=== PATIENT | female | born 1950 | race Caucasian/White ===

== ENCOUNTER → 2022-04-27 13:18 | Outpatient (CLI) | payer MEDICARE, SELFPAY ==
--- NOTE | ~2022-04-27 | DEXA_ITS ---
Bone Density Report Name: MATTHEW BEARD Age: 72 Sex: Female Ethnicity: White Date of : 1950 Indication: postmenopausal; screening for osteoporosis; height loss; Referring Provider: ASHLIE SAPMSON Study: Bone densitometry was performed. Exam Date: April 27, 2022 Accession number: [id number] Bone Density: Region BMD T-score Z-score Classification AP Spine (L1-L4) 0.915 -1.2 1.2 Osteopenia Femoral Neck (Left) 0.698 -1.4 0.7 Osteopenia Total Hip (Left) 0.794 -1.2 0.5 Osteopenia Femoral Neck (Right) 0.638 -1.9 0.1 Osteopenia Total Hip (Right) 0.827 -0.9 0.8 Normal Total Hip Mean 0.811 -1.1 0.7 Osteopenia World Health Organization criteria for BMD impression classify patients as: Normal (T-score at or above -1.0), Osteopenia (T-score between -1.0 and -2.5), or Osteoporosis (T-score at or below -2.5). 10-year Fracture Risk(1): Major Osteoporotic Fracture 12% Hip Fracture 2.8% Reported Risk Factors: [place] (), Neck BMD=0.638, BMI=25.4 (1) FRAX(R) Version 3.08. Fracture probability calculated for an untreated patient. Fracture probability may be lower if the patient has received treatment. Clinical Information Provided by Patient: Has used the following medications: Vitamin D Patient maximum height was 67 Menopause Age: 49 Drinks caffeinated beverages Onset of menses at age 12 Number of children 3 Impression: The patient has low bone mass, based on the Right Femoral Neck T-score. The patient has an estimated ten-year risk of hip fracture of 2.8% and an estimated ten-year risk of major fracture of 12%, based on the WHO FRAX algorithm. Discussion: BONE DENSITY IS LOW AT ONE OR MORE SKELETAL SITES. This patient's lowest T-score is low at one or more skeletal sites. It meets the World Health Organization's (WHO) criteria for ?low bone mass? (T-score between -1.0 and -2.5). The patient's 10-year risk of fracture as calculated by FRAX is less than the threshold where pharmacological therapy is recommended by the National Osteoporosis Foundation (NOF). However, all treatment decisions require clinical judgment and consideration of individual patient factors, including patient preferences, comorbidities, previous drug use, risk factors not captured in the FRAX model (e.g., frailty, falls, vitamin D deficiency, increased bone turnover, interval significant decline in bone density) and possible under or overestimation of fracture risk by FRAX. The patient should follow a healthful lifestyle (good nutrition with adequate calcium and vitamin D, and appropriate weight-bearing exercise). Follow-Up: Consider repeating this study in 2 to 3 years to reassess this patient's status, or sooner if there is some new clinical indication. Reported by: SINDHU on 04/27/2022 1:43:00 PM.
== END ==
PROVIDERS: PCP Family Medicine; Visit Provider Family Medicine
DX: M85.88 Other specified disorders of bone density and structure, other site (principal); M85.852 Other specified disorders of bone density and structure, left thigh; M85.851 Other specified disorders of bone density and structure, right thigh
CPT/HCPCS: 77080

== ENCOUNTER 2022-07-17 08:16 | Outpatient (CLI) | payer MEDICARE, SELFPAY ==
[2022-07-17 19:52] LABS: Basophils Absolute Auto 0.1 K/mm3 (0.0-0.1); Eosinophils Absolute Auto 0.1 K/mm3 (0-0.3); Eosinophils Percent Auto 2.7 % (0-4.4); Hematocrit 40.1 % (37.0-47.0); Hemoglobin 13.4 g/dL (12.0-15.0); Immature Granulocyte Absolute 0.01 K/mm3 (0.00-0.031); Immature Granulocyte Percent A 0.2 % (0-0.5); Lymphocytes Absolute Auto 1.06 K/mm3 (0.9-3.2); Lymphocytes Percent Auto 20.8 % (18.3-44.2); Mean Corpuscular HGB Conc 33.4 g/dl (32-36); Mean Corpuscular Hemoglobin 31.2 pg (26-34); Mean Corpuscular Volume 93.5 fl (80-100); Mean Platelet Volume 9.1 fl (7.4-10.4); Monocytes Absolute Auto 0.5 K/mm3 (0.1-0.6); Monocytes Percent Auto 9.4 % (2.6-8.5); Neutrophils Absolute Auto 3.4 K/mm3 (1.3-6.7); Neutrophils Percent Auto 65.9 % (45.5-73.1); Platelet Count Result 279 k/mm3 (150-375); Red Blood Count 4.29 M/mm3 (4.2-5.4); Red Cell Distribution Width 12.5 % (11.5-14.5); White Blood Count 5.1 K/mm3 (4.5-10.0)
[2022-07-17 21:50] LABS: Hemoglobin A1C 5.3 % (<5.7)
[2022-07-17 22:34] LABS: Alanine Aminotransferase 35 U/L (6-35); Albumin Level 4.5 g/dL (3.5-5.1); Alkaline Phosphatase 99 U/L (38-126); Anion Gap 9 mmol/L (8-16); Aspartate Amino Transferase 43 U/L (14-36); Bilirubin,Total 0.7 mg/dL (0.2-1.3); Blood Urea Nitrogen 14 mg/dL (7-17); Calcium 9.1 mg/dL (8.4-10.2); Carbon Dioxide 23 mmol/L (22-30); Chloride 101 mmol/L (98-107); Cholesterol 143 mg/dL (0-200); Estimated Glomerular Filt Rate > 60; Glucose 97 mg/dL (65-110); HDL Direct 89 mg/dL; Potassium 4.6 mmol/L (3.4-5.0); Sodium 133 mmol/L (137-145); Triglycerides 60 mg/dL (<150)
[2022-07-17 22:45] LABS: LDL Cholesterol Direct 38 mg/dL
[2022-07-17 22:58] LABS: Free T4 Free Thyroxine 1.29 ng/mL (0.78-2.19)
[2022-07-17 23:02] LABS: Thyroid Stimulating Hormone 0.954 uIU/mL (0.465-4.680)
== END 2022-07-17 08:17 | disposition home or self-care (01) ==
LOC: ANHGOSHLAB 08:18
PROVIDERS: PCP Family Medicine; Visit Provider Family Medicine
DX: R73.9 Hyperglycemia, unspecified (principal); E55.9 Vitamin D deficiency, unspecified; E78.5 Hyperlipidemia, unspecified; R53.83 Other fatigue
CPT/HCPCS: 36415; 80053; 80061; 82306; 83036; 84439; 84443; 85025

== ENCOUNTER 2022-07-27 07:59 | Outpatient (CLI) | payer MEDICARE, SELFPAY ==
--- NOTE | ~2022-07-27 | MM_ITS ---
EXAMINATION: MM screening rubén BI w carlos HISTORY: Screening mammogram TECHNIQUE: Craniocaudal and mediolateral oblique 3-D tomosynthesis images were obtained and synthetic 2-D images were generated. CAD analysis was submitted and interpreted. COMPARISON: No prior mammogram is available for comparison at this institution. BREAST PARENCHYMAL COMPOSITION: The breasts are heterogeneously dense, which may obscure small masses . FINDINGS: No suspicious mass, calcification, or architectural distortion are identified in either sharad ast to suggest malignancy. IMPRESSION: 1. No mammographic evidence of malignancy. 2. Recommend routine screening mammography in one year. BI-RADS Category 1: Negative Reviewed, dictated and finalized at location A.
== END 2022-07-27 08:00 | disposition home or self-care (01) ==
PROVIDERS: PCP Family Medicine; Visit Provider Family Medicine
DX: Z12.31 Encounter for screening mammogram for malignant neoplasm of breast (principal)
CPT/HCPCS: 77063; 77067

== ENCOUNTER → 2023-02-03 08:05 | Outpatient (CLI) | payer MEDICARE, SELFPAY ==
--- NOTE | ~2023-02-03 | XR_ITS ---
Clinical Indication: Cough PA and lateral views of the chest: Comparison: None Findings: Focal hazy opacity right lung apex noted. Left lung clear. Probable COPD. Cardiomediastinal silhouette is within normal limits. Bones and soft tissues are unremarkable. Impression: COPD. Focal hazy opacity right lung apex, indeterminate. This could reflect chronic scarring, however focal pneumonitis or even pulmonary nodule cannot be completely excluded. CT advised to further evaluate. Reviewed, dictated and finalized at location M. Impression: COPD. Focal hazy opacity right lung apex, indeterminate. This could reflect chronic s carring, however focal pneumonitis or even pulmonary nodule cannot be completel y excluded. CT advised to further evaluate.
== END ==
PROVIDERS: PCP Family Medicine; Visit Provider Nurse Practitioner
DX: R05.9 Cough, unspecified (principal); R07.89 Other chest pain; J44.9 Chronic obstructive pulmonary disease, unspecified
CPT/HCPCS: 71046

== ENCOUNTER 2023-02-10 08:59 | Outpatient (CLI) | payer MEDICARE, SELFPAY ==
--- NOTE | ~2023-02-10 | CT_ITS ---
Clinical Indication: Acute cough CT Scan of the Chest with Contrast: Technique: Contiguous sections were acquired throughout the chest after intravenous administration of 75 cc of Omnipaque 350. Dose reduction technique was used on this scan by utilizing automated exposu re control and iterative reconstruction technique. The dose-length product (DLP) was 145.06 mGy-cm. Findings: There is no evidence of any significant mediastinal, hilar or axillary lymphadenopathy. There is no f illing defect in the pulmonary arterial tree to suggest pulmonary embolus. There is no evidence of ao rtic dissection or aneurysm. There is no evidence of pleural or pericardial effusion. There is linear bibasilar scarring. Calcified left lower lobe granuloma noted. There is an area of gr oundglass opacity and streakiness at the right lung apex, suggestive of postinflammatory change or po ssibly postradiation change if there is relevant history. Images through the upper abdomen reveal no abnormalities. Impression: Area of groundglass opacity right lung apex suggestive of postinflammatory change, or possibly postra diation change if there is relevant history. Acute pneumonitis is a potential consideration as well. Linear bibasilar pulmonary scarring. Reviewed, dictated and finalized at [facility]. Impression: Area of groundglass opacity right lung apex suggestive of postinflammatory monteiro ge, or possibly postradiation change if there is relevant history. Acute pneumo nitis is a potential consideration as well. Linear bibasilar pulmonary scarring.
[2023-02-10 09:21] LABS: Estimated Glomerular Filt Rate > 60
== END 2023-02-10 09:00 | disposition home or self-care (01) ==
PROVIDERS: PCP Family Medicine; Visit Provider Nurse Practitioner
DX: R05.1 Acute cough (principal); R91.8 Other nonspecific abnormal finding of lung field
CPT/HCPCS: 71260; Q9967

== ENCOUNTER 2023-06-24 10:21 | Emergency (ER) | payer MEDICARE, SELFPAY ==
--- NOTE | 2023-06-24 10:29 | ED.FEMALEGU ---
HPI - Female Genitourinary General Chief complaint: Abdominal Pain Stated complaint: Urinal pain Time Seen by Provider: 06/24/23 10:52 Source: patient, RN notes reviewed and old records reviewed Mode of arrival: ambulatory Limitations: no limitations History of Present Illness HPI Narrative: 73-year-old female presents to the [facility] complaints of lower abdominal discomfort. States that she has had it for a little while, got worse after eating last night. Reports trying to call her primary care provider this morning and was referred to the [facility] for evaluation. Patient reports that she was supposed to see GI in the past for IBS. Last bowel movement was this morning which she reports was normal in consistency but smaller than her normal Denies any urinary symptoms. Related Data Home Medications Medication Instructions Recorded Confirmed cholecalciferol (vitamin D3) 10 10 mcg PO DAILY 09/01/21 06/24/23 mcg (400 unit) capsule multivitamin 1 tablet PO DAILY 09/01/21 06/24/23 fexofenadine 60 mg tablet (Sherrill 60 mg PO Q12H 01/06/23 06/24/23 Allergy) Allergies Allergy/AdvReac Type Severity Reaction Status Date / Time prochlorperazine AdvReac tongue Verified 06/24/23 10:35 [From Compazine] came out of her mouth Review of Systems Review of Systems: All systems reviewed & are unremarkable except as noted in HPI and below Constitutional: Constitutional: Reports no additional constitutional complaints Eyes: Eyes: Reports no additional eye complaints ENT: Reports system reviewed and no additional complaints, except as documented Cardiovascular: Cardiovascular: Reports no additional cardiovascular complaints, Denies chest pain and Denies dyspnea Respiratory: Respiratory: Reports no additional respiratory complaints, Denies chest congestion, Denies cough and Denies dyspnea Gastrointestinal: Gastrointestinal: Reports as per HPI, Reports abdominal pain, Denies belching, Reports bloating, Denies constipation, Reports GI cramping, Denies diarrhea, Denies loose stools, Denies nausea, Denies vomiting and Denies hematemesis Musculoskeletal: Musculoskeletal: Reports no additional musculoskeletal complaints Integumentary/Breasts: Skin/Breast: Reports system reviewed and no additional complaints, except as docu Neurologic: Reports system reviewed and no additional complaints, except as documented Psychiatric: Psychiatric: Reports no additional psychiatric complaints Allergic/Immunologic: Allergic/Immunologic: Reports no additional allergic/immunologic complaints PMFSH Past Medical History Medical History Bladder prolapse Diverticulosis Hypertension IBS (irritable bowel syndrome) IBS (irritable bowel syndrome) Vaginal delivery x3 Surgical History Surgical History History of appendectomy History of cholecystectomy History of knee surgery right History of lumpectomy in breast for precancerous cells [place] teeth extracted Family History Family History Father Diabetes mellitus Hypertension Heart disease Mother Thyroid disorder Grandparent Cerebrovascular accident Sibling Diabetes mellitus Hypertension Social History Social History Smoking status: Former smoker Smoking end date: 10/04/99 Alcohol intake: current Substance use: never Lack of Transportation: No Lack of Food: Never True Current Housing: I Have Housing Concerned About Future Housing: No Difficulty Paying Gas/Electric Bills: No Difficulty Paying for Meds: No Currently Unemployed: No Education: High School Diploma/GED Difficulty w/ Childcare or Family Care: No Occupation/Education: retired Comments At the time of my signature, I reviewed and agree with the nursing pa
[2023-06-24 10:39] VITALS: BP 170/78; PULSE 70; RESP 16; TEMP 36.8; O2SAT 99
== END 2023-06-24 11:15 | disposition home or self-care (01) ==
PROVIDERS: Emergency Provider Nurse Practitioner; PCP Family Medicine
DX: K58.9 Irritable bowel syndrome, unspecified (principal); R14.0 Abdominal distension (gaseous); I10 Essential (primary) hypertension; Z87.891 Personal history of nicotine dependence
CPT/HCPCS: 81003; 99212; G0463

== ENCOUNTER 2023-07-13 08:21 | Outpatient (CLI) | payer MEDICARE, SELFPAY ==
[2023-07-13 18:47] LABS: Alanine Aminotransferase 23 U/L (6-35); Albumin Level 4.3 g/dL (3.5-5.1); Alkaline Phosphatase 97 U/L (38-126); Anion Gap 6 mmol/L (8-16); Aspartate Amino Transferase 45 U/L (14-36); Bilirubin,Total 0.8 mg/dL (0.2-1.3); Blood Urea Nitrogen 17 mg/dL (7-17); Calcium 9.4 mg/dL (8.4-10.2); Carbon Dioxide 29 mmol/L (22-30); Chloride 97 mmol/L (98-107); Cholesterol 218 mg/dL (0-200); Estimated Glomerular Filt Rate > 60; Glucose 82 mg/dL (65-110); HDL Direct 92 mg/dL; Potassium 4.9 mmol/L (3.4-5.0); Sodium 132 mmol/L (137-145); Triglycerides 94 mg/dL (<150)
[2023-07-13 19:05] LABS: LDL Cholesterol Direct 95 mg/dL
[2023-07-13 19:23] LABS: Vitamin D 25 Hydroxy 43.3 ng/mL
[2023-07-13 19:40] LABS: Basophils Percent Auto 0.8 % (0.2-1.2); Eosinophils Absolute Auto 0.1 K/mm3 (0-0.3); Eosinophils Percent Auto 2.9 % (0-4.4); Hemoglobin 13.8 g/dL (12.0-15.0); Immature Granulocyte Absolute 0.02 K/mm3 (0.00-0.031); Immature Granulocyte Percent A 0.4 % (0-0.5); Lymphocytes Absolute Auto 1.25 K/mm3 (0.9-3.2); Mean Corpuscular HGB Conc 33.7 g/dl (32-36); Mean Corpuscular Hemoglobin 32.1 pg (26-34); Mean Corpuscular Volume 95.3 fl (80-100); Mean Platelet Volume 9.6 fl (7.4-10.4); Monocytes Absolute Auto 0.5 K/mm3 (0.1-0.6); Monocytes Percent Auto 9.8 % (2.6-8.5); Neutrophils Absolute Auto 2.9 K/mm3 (1.3-6.7); Neutrophils Percent Auto 60.1 % (45.5-73.1); Platelet Count Result 284 k/mm3 (150-375); Red Cell Distribution Width 12.4 % (11.5-14.5); White Blood Count 4.8 K/mm3 (4.5-10.0)
== END 2023-07-13 08:22 | disposition home or self-care (01) ==
PROVIDERS: PCP Family Medicine; Visit Provider Family Medicine
DX: R53.83 Other fatigue (principal); E55.9 Vitamin D deficiency, unspecified; E78.5 Hyperlipidemia, unspecified
CPT/HCPCS: 36415; 80053; 80061; 82306; 84443; 85025

== ENCOUNTER 2023-07-13 08:24 | Outpatient (CLI) | payer MEDICARE, SELFPAY ==
[2023-07-13 19:41] LABS: Thyroid Stimulating Hormone Reflex 0.908 uIU/mL (0.465-4.68)
== END 2023-07-13 08:25 | disposition home or self-care (01) ==
PROVIDERS: PCP Family Medicine; Visit Provider Nurse Practitioner
DX: G89.29 Other chronic pain (principal); K59.09 Other constipation; R10.819 Abdominal tenderness, unspecified site; R10.9 Unspecified abdominal pain
CPT/HCPCS: 36415; 84443

== ENCOUNTER 2023-07-20 10:03 | Outpatient (CLI) | payer MEDICARE, SELFPAY ==
--- NOTE | ~2023-07-20 | CT_ITS ---
EXAMINATION: CT abdomen pelvis w con DATE: 07/20/2023 10:40 INDICATION: Lower abdominal pain, tenderness TECHNIQUE: Computed tomography (CT) of the abdomen and pelvis was performed with 100 CC Omnipaque 350 intravenous contrast. Automated exposure control and iterative reconstruction technique were employe d. Exam dose: 350.90 mGy-cm total exam DLP. COMPARISON: None. FINDINGS: There is mild discoid atelectasis and/or scarring at the lung bases. Cardiomegaly. No peric ardial or pleural effusion. Small sliding hiatal hernia. The liver, spleen and pancreas are unremarkable. The gallbladder is absent. No abnormal bile duct or pancreatic duct dilatation is detected. Normal morphology of the adrenal glands. Approximately 5 mm left renal cyst. Moderately prominent bilateral extrarenal pelves. No urinary trac t calculus or hydroureteronephrosis. The uterus is unremarkable. Pessary device is noted. Uterus and adnexal areas are unremarkable. There is atherosclerotic calcification at the origins of the celiac and superior mesenteric arteries. Normal caliber of the abdominal aorta. No intraperitoneal or retroperitoneal or pelvic mass lesion or adenopathy or ascites is detected. There are numerous diverticula of the sigmoid and descending and transverse colon; no evidence of div erticulitis. No bowel obstruction, bowel wall thickening, pneumatosis or intraperitoneal free air is detected. Likely chronic moderately prominent burst fracture deformity of L3. There are prominent degenerative changes apophyseal joints of the lumbar spine with associated grade 1 anterolisthesis at L5-S1. There is moderately severe degenerative disc disease at L5-S1. Osteopenia. IMPRESSION: Diverticulosis of the colon; no CT evidence of diverticulitis is detected Small sliding hiatal hernia 5 mm left renal cyst Likely chronic moderate burst fracture deformity of L3 Reviewed, dictated and finalized at [facility] A. Reviewed, dictated and finalized at location L. IMPRESSION: Diverticulosis of the colon; no CT evidence of diverticulitis is d etected Small sliding hiatal hernia 5 mm left renal cyst Likely chronic moderate burst fracture deformity of L3
== END 2023-07-20 10:04 | disposition home or self-care (01) ==
PROVIDERS: PCP Family Medicine; Visit Provider Nurse Practitioner
DX: R10.819 Abdominal tenderness, unspecified site (principal); K59.09 Other constipation; R10.9 Unspecified abdominal pain; G89.29 Other chronic pain; K44.9 Diaphragmatic hernia without obstruction or gangrene; N28.1 Cyst of kidney, acquired; K57.30 Diverticulosis of large intestine without perforation or abscess without bleeding
CPT/HCPCS: 74177; Q9967

== ENCOUNTER 2023-08-11 02:44 | Day surgery (SDC) | payer MEDICARE, SELFPAY ==
[2023-08-03 13:55] VITALS: BMI 23.1
--- NOTE | 2023-08-09 09:31 | SUR.PREOP ---
Patient called regarding upcoming procedure. Reviewed preop instructions, appointment times, and procedure prep.
[2023-08-11 06:45] VITALS: BP 159/56; PULSE 71; RESP 16; TEMP 36.5; O2SAT 100
[2023-08-11] MEDS: LACTATED RINGERS 1,000 ML 150 ML IV CONT (06:48)
--- NOTE | 2023-08-11 07:56 | PM.HPGS ---
History of Present Illness History of Present Illness Consent: Risks, benefits, and alternatives have been discussed and questions answered. Patient agrees to proceed with procedure. Chief complaint: Abdominal tenderness,Other constipation Narrative: Vanda Awad is a 73 year old female with ibs-c on metamucil and stool softener, recently with lower abdominal pain. CT scan showed diverticulosis, last colonoscopy 2014 Review of Systems Constitutional: Constitutional: Denies headache(s) and Denies weakness Eyes: Eyes: Denies blurry vision ENT: Reports Normal hearing present, Denies headache(s) and Denies neck pain Cardiovascular: Cardiovascular: Denies chest pain and Denies dyspnea Respiratory: Respiratory: Denies dyspnea Gastrointestinal: Gastrointestinal: Reports no additional gastrointestinal complaints Genitourinary: Genitourinary: Denies dysuria Musculoskeletal: Musculoskeletal: Denies neck pain Integumentary/Breasts: Skin/Breast: Denies dry skin Neurologic: Reports Normal hearing present, Denies headache(s) and Denies weakness Psychiatric: Psychiatric: Denies anxiety Endocrine: Endocrine: Denies change in body appearance Hematologic/Lymphatic: Hematologic/Lymphatic: Denies easy bleeding Allergic/Immunologic: Allergic/Immunologic: Denies urticaria PMFSH Past Medical History Medical History (Updated 07/07/23 @ 11:35 by Rosemarie Nowak DO) Bladder prolapse Chronic abdominal pain Chronic constipation Diverticulosis Hypertension IBS (irritable bowel syndrome) IBS (irritable bowel syndrome) Lower abdominal tenderness Vaginal delivery x3 Surgical History Surgical History History of appendectomy History of cholecystectomy History of knee surgery right History of lumpectomy in breast for precancerous cells [place] teeth extracted Family History Family History Father Diabetes mellitus Hypertension Heart disease Mother Thyroid disorder Grandparent Cerebrovascular accident Sibling Diabetes mellitus Hypertension Social History Social History Years smoked: 25 Smoking status: Former smoker Tobacco type: cigarettes Smoking end date: 10/04/99 Alcohol intake: current Drinks per week: 1 Substance use: never Lack of Transportation: No Lack of Food: Never True Current Housing: I Have Housing Concerned About Future Housing: No Difficulty Paying Gas/Electric Bills: No Difficulty Paying for Meds: No Currently Unemployed: No Education: High School Diploma/GED Difficulty w/ Childcare or Family Care: No Living arrangements: with family Occupation/Education: retired Spiritual care concerns: No Meds Home Medications and Allergies Home Medications Medication Instructions Recorded Confirmed Type cholecalciferol (vitamin D3) 10 10 mcg PO DAILY 09/01/21 08/11/23 History mcg (400 unit) capsule multivitamin 1 tablet PO DAILY 09/01/21 08/11/23 History fexofenadine 60 mg tablet (Sherrill 60 mg PO Q12H PRN Allergy Symptoms 01/06/23 08/11/23 History Allergy) losartan 50 mg tablet 50 mg PO DAILY #90 tabs 07/07/23 08/11/23 Rx calcium carbonate 600 mg-vitamin 1 tablet PO DAILY 08/03/23 08/11/23 History D3 10 mcg (400 unit) tablet (Calcium 600 + D(3)) Allergies Allergy/AdvReac Type Severity Reaction Status Date / Time prochlorperazine AdvReac tongue Verified 08/11/23 06:43 [From Compazine] came out of her mouth Vital Signs Vital Signs - 24 hr 08/11/23 06:45 Temperature 97.7 F Pulse Rate 71 Respiratory Rate 16 Blood Pressure 159/56 H Pulse Oximetry 100 Oxygen Delivery Room Air Exam Const: General: comfortable and no acute distress HENMT: Face/Nose/Sinus: Normal nares present Eyes: General: appearance normal, both eyes a
--- NOTE | 2023-08-11 08:01 | WPDANESEPPF ---
Anes - Initial Pre Proc Eval Procedure: Operation Date: 08/11/23 08:00 Proposed Procedures p Colonoscopy - Antoine Rossi MD Date/Time: 08/11/23 08:01 Surgeon: Antoine Rossi MD Pre Op Diagnosis: Abdominal tenderness,Other constipation Patient Data Age: 73 Gender: F Height: 1.69 m Weight: 65.7 kg Last Vital Signs Temp 97.7 F 08/11/23 06:45 Pulse 71 08/11/23 06:45 Resp 16 08/11/23 06:45 BP 159/56 H 08/11/23 06:45 Pulse Ox 100 08/11/23 06:45 O2 Del Method Room Air 08/11/23 06:45 Allergies Allergy/AdvReac Type Severity Reaction Status Date / Time prochlorperazine AdvReac tongue Verified 08/11/23 06:43 [From Compazine] came out of her mouth Home Medications Medication Instructions Recorded Confirmed Type cholecalciferol (vitamin D3) 10 10 mcg PO DAILY 09/01/21 08/11/23 History mcg (400 unit) capsule multivitamin 1 tablet PO DAILY 09/01/21 08/11/23 History fexofenadine 60 mg tablet (Sherrill 60 mg PO Q12H PRN Allergy Symptoms 01/06/23 08/11/23 History Allergy) losartan 50 mg tablet 50 mg PO DAILY #90 tabs 07/07/23 08/11/23 Rx calcium carbonate 600 mg-vitamin 1 tablet PO DAILY 08/03/23 08/11/23 History D3 10 mcg (400 unit) tablet (Calcium 600 + D(3)) Patient hx anesthesia problems: none Family hx anesthesia problems: none Results Review: All pre-operative results and documents have been reviewed as part of the pre-operative evaluation. [facility] Past Medical History Medical History (Updated 07/07/23 @ 11:35 by Rosemarie Nowak DO) Bladder prolapse Chronic abdominal pain Chronic constipation Diverticulosis Hypertension IBS (irritable bowel syndrome) IBS (irritable bowel syndrome) Lower abdominal tenderness Vaginal delivery x3 Surgical History Surgical History History of appendectomy History of cholecystectomy History of knee surgery right History of lumpectomy in breast for precancerous cells [place] teeth extracted Family History Family History Father Diabetes mellitus Hypertension Heart disease Mother Thyroid disorder Grandparent Cerebrovascular accident Sibling Diabetes mellitus Hypertension Social History Social History Years smoked: 25 Smoking status: Former smoker Tobacco type: cigarettes Smoking end date: 10/04/99 Alcohol intake: current Drinks per week: 1 Substance use: never Lack of Transportation: No Lack of Food: Never True Current Housing: I Have Housing Concerned About Future Housing: No Difficulty Paying Gas/Electric Bills: No Difficulty Paying for Meds: No Currently Unemployed: No Education: High School Diploma/GED Difficulty w/ Childcare or Family Care: No Living arrangements: with family Occupation/Education: retired Spiritual care concerns: No Anes - Eval Final PreProcedure Day of Procedure 08/11/23 08:01 Patient weight: normal Heart: regular rate and rhythm Lungs: clear to auscultation Airway: Mallampati scale class II Neurological: alert and oriented Last oral intake: >/= 8 hours ASA classification: II Emergent: no Anesthetic plan: proceed Anesthesia type and monitoring: general GIVS and standard monitoring Results Review: All pre-operative results and documents have been reviewed as part of the pre-operative evaluation. Informed Consent: The patient's anesthetic plan and its attendant risks and benefits were discussed with the patient/family/POA. Questions were solicited and answers provided to the satisfaction of the patient/family/POA.
[2023-08-11 08:23] VITALS: BP 95/53; PULSE 63; RESP 22; O2SAT 98
[2023-08-11 08:33] VITALS: BP 123/63; PULSE 63; RESP 15; O2SAT 99
[2023-08-11 08:40] VITALS: BP 130/60; PULSE 68; RESP 16; O2SAT 99
== END 2023-08-11 08:49 | disposition home or self-care (01) ==
PROVIDERS: PCP Family Medicine; Visit Provider Internal Medicine Gastroenterology
PROC: 0DJD8ZZ Inspection of Lower Intestinal Tract, Via Natural or Artificial Opening Endoscopic (ICD-10-PCS; CPT 45378; principal; 2023-08-11 08:00)
DX: K58.1 Irritable bowel syndrome with constipation (principal); D12.2 Benign neoplasm of ascending colon; K57.30 Diverticulosis of large intestine without perforation or abscess without bleeding; K64.8 Other hemorrhoids; I10 Essential (primary) hypertension; Z87.891 Personal history of nicotine dependence
CPT/HCPCS: 45385; 88305; J2704; J7120

== ENCOUNTER 2023-09-02 15:28 | Outpatient (CLI) | payer MEDICARE, SELFPAY ==
[2023-09-02 19:54] LABS: Alanine Aminotransferase 22 U/L (6-35); Albumin Level 4.2 g/dL (3.5-5.1); Alkaline Phosphatase 96 U/L (38-126); Anion Gap 9 mmol/L (8-16); Aspartate Amino Transferase 46 U/L (14-36); Bilirubin,Total 0.6 mg/dL (0.2-1.3); Blood Urea Nitrogen 14 mg/dL (7-17); Calcium 9.3 mg/dL (8.4-10.2); Carbon Dioxide 26 mmol/L (22-30); Chloride 101 mmol/L (98-107); Estimated Glomerular Filt Rate > 60; Glucose 100 mg/dL (65-110); Sodium 136 mmol/L (137-145)
[2023-09-02 20:26] LABS: Hepatitis B Surface Antigen Negative (Negative)
[2023-09-02 20:32] LABS: HAV RESULT Negative (Negative); Hepatitis B Core IgM Result Negative (Negative)
[2023-09-02 20:44] LABS: Hepatitis C Virus Antibody Negative (Negative)
== END 2023-09-02 15:29 | disposition home or self-care (01) ==
LOC: ANHGOSHLAB 15:30
PROVIDERS: PCP Family Medicine; Visit Provider Family Medicine
DX: G89.29 Other chronic pain (principal); R10.9 Unspecified abdominal pain; R74.8 Abnormal levels of other serum enzymes
CPT/HCPCS: 36415; 80053; 80074

== ENCOUNTER 2023-11-15 07:14 | Outpatient (CLI) | payer MEDICARE, SELFPAY ==
--- NOTE | ~2023-11-15 | MM_ITS ---
EXAMINATION: MM screening rubén BI w carlos HISTORY: Screening mammogram TECHNIQUE: Craniocaudal and mediolateral oblique 3-D tomosynthesis images were obtained and synthetic 2-D images were generated. CAD analysis was submitted and interpreted. COMPARISON: 07/27/2022 BREAST PARENCHYMAL COMPOSITION: The breasts are heterogeneously dense, which may obscure small masses . FINDINGS: No suspicious mass, calcification, or architectural distortion are identified in either sharad ast to suggest malignancy. There has been no suspicious interval change. IMPRESSION: 1. No mammographic evidence of malignancy. 2. Recommend routine screening mammography in one year. BI-RADS Category 1: Negative Reviewed, dictated and finalized at location A. 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
== END 2023-11-15 07:15 | disposition home or self-care (01) ==
LOC: ANHIMG 07:16
PROVIDERS: PCP Family Medicine; Visit Provider Family Medicine
DX: Z12.31 Encounter for screening mammogram for malignant neoplasm of breast (principal)
CPT/HCPCS: 77063; 77067

== ENCOUNTER 2024-04-12 15:06 | Outpatient (CLI) | payer MEDICARE, SELFPAY ==
[2024-04-12 19:36] LABS: Alanine Aminotransferase 22 U/L (6-35); Albumin Level 4.7 g/dL (3.5-5.1); Alkaline Phosphatase 86 U/L (38-126); Anion Gap 9 mmol/L (4-12); Aspartate Amino Transferase 48 U/L (14-36); Bilirubin,Total 0.8 mg/dL (0.2-1.3); Blood Urea Nitrogen 24 mg/dL (7-17); Calcium 9.4 mg/dL (8.4-10.2); Carbon Dioxide 29 mmol/L (22-30); Chloride 93 mmol/L (98-107); Estimated Glomerular Filt Rate > 60; Glucose 92 mg/dL (65-110); Potassium 4.3 mmol/L (3.4-5.0); Sodium 131 mmol/L (137-145)
[2024-04-13 16:33] LABS: Almond (F20) IgE <0.10 kU/L; Cashew Nut (F202) IgE <0.10 kU/L; Cashew Nut (F202) IgE Class 0; Codfish (F3) IgE <0.10 kU/L; Codfish (F3) IgE Class 0; Cow's Milk (F2) IgE <0.10 kU/L; Cow's Milk (F2) IgE Class 0; Egg White (F1) IgE <0.10 kU/L; Egg White (F1) IgE Class 0; Hazelnut (F17) IgE <0.10 kU/L; Hazelnut (F17) IgE Class 0; Peanut (F13) IgE <0.10 kU/L; Peanut (F13) IgE Class 0; Salmon (F41) IgE <0.10 kU/L; Salmon (F41) IgE Class 0; Scallop (F338) IgE <0.10 kU/L; Scallop (F338) IgE Class 0; Sesame Seed <0.10 kU/L; Shrimp (F24) IgE <0.10 kU/L; Soybean (F14) IgE <0.10 kU/L; Soybean (F14) IgE Class 0; Tuna (F40) <0.10 kU/L; Tuna (F40) Class 0; Walnut (F256) IgE <0.10 kU/L; Walnut (F256) IgE Class 0; Wheat (F4) IgE <0.10 kU/L; Wheat (F4) IgE Class 0
[2024-04-14 10:59] LABS: Endomysial Ab (IgA) Screen NEGATIVE (NEGATIVE)
[2024-04-15 04:19] LABS: Tissue Transglutaminase IgA Ab <1.0 U/mL
[2024-04-17 12:25] LABS: Endomysial Additional Testing Not Indicated
== END 2024-04-12 15:07 | disposition home or self-care (01) ==
PROVIDERS: PCP Family Medicine; Visit Provider Family Medicine
DX: R74.8 Abnormal levels of other serum enzymes (principal); K58.9 Irritable bowel syndrome, unspecified; R19.7 Diarrhea, unspecified; R10.9 Unspecified abdominal pain
CPT/HCPCS: 36415; 80053; 86003; 86255; 86364

== ENCOUNTER 2024-04-12 15:17 | Outpatient (CLI) | payer MEDICARE, SELFPAY ==
--- NOTE | ~2024-04-12 | XR_ITS ---
EXAMINATION: XR knee LT min 4V DATE: 04/12/2024 15:41 INDICATION: Left knee pain. TECHNIQUE: 4 views of left knee including standing views were obtained. COMPARISON: None. FINDINGS: Alignment is normal. No fracture. There is mild tricompartmental osteoarthritis. No knee neftaly int effusion. IMPRESSION: 1. Mild left knee osteoarthritis. Reviewed, dictated and finalized at location E.
== END 2024-04-12 15:18 ==
PROVIDERS: PCP Family Medicine; Visit Provider Family Medicine
DX: M17.12 Unilateral primary osteoarthritis, left knee (principal)
CPT/HCPCS: 73564

== ENCOUNTER 2024-07-17 08:10 | Outpatient (CLI) | payer MEDICARE, SELFPAY ==
[2024-07-17 14:36] LABS: Alanine Aminotransferase 20 U/L (6-35); Albumin Level 4.5 g/dL (3.5-5.1); Alkaline Phosphatase 89 U/L (38-126); Anion Gap 9 mmol/L (4-12); Aspartate Amino Transferase 54 U/L (14-36); Blood Urea Nitrogen 12 mg/dL (7-17); Calcium 9.4 mg/dL (8.4-10.2); Carbon Dioxide 27 mmol/L (22-30); Chloride 92 mmol/L (98-107); Cholesterol 238 mg/dL (0-200); Estimated Glomerular Filt Rate > 60; Glucose 90 mg/dL (65-110); HDL Direct 99 mg/dL; Potassium 4.8 mmol/L (3.4-5.0); Sodium 128 mmol/L (137-145); Triglycerides 87 mg/dL (<150)
[2024-07-17 14:47] LABS: LDL Cholesterol Direct 96 mg/dL
[2024-07-17 14:50] LABS: Basophils Absolute Auto 0.1 K/mm3 (0.0-0.1); Basophils Percent Auto 0.9 % (0.2-1.2); Eosinophils Absolute Auto 0.1 K/mm3 (0-0.3); Eosinophils Percent Auto 1.5 % (0-4.4); Hemoglobin 13.6 g/dL (12.0-15.0); Immature Granulocyte Absolute 0.02 K/mm3 (0.00-0.031); Immature Granulocyte Percent A 0.3 % (0-0.5); Lymphocytes Absolute Auto 0.93 K/mm3 (0.9-3.2); Lymphocytes Percent Auto 15.9 % (18.3-44.2); Mean Corpuscular Hemoglobin 31.8 pg (26-34); Mean Corpuscular Volume 93.5 fl (80-100); Mean Platelet Volume 9.4 fl (7.4-10.4); Monocytes Absolute Auto 0.4 K/mm3 (0.1-0.6); Monocytes Percent Auto 7.2 % (2.6-8.5); Neutrophils Absolute Auto 4.3 K/mm3 (1.3-6.7); Neutrophils Percent Auto 74.2 % (45.5-73.1); Platelet Count Result 282 k/mm3 (150-375); Red Blood Count 4.28 M/mm3 (4.2-5.4); Red Cell Distribution Width 12.4 % (11.5-14.5); White Blood Count 5.9 K/mm3 (4.5-10.0)
[2024-07-17 15:15] LABS: Vitamin D 25 Hydroxy 52.3 ng/mL
== END 2024-07-17 08:11 | disposition home or self-care (01) ==
PROVIDERS: PCP Family Medicine; Visit Provider Nurse Practitioner
DX: E55.9 Vitamin D deficiency, unspecified (principal); I10 Essential (primary) hypertension; M85.80 Other specified disorders of bone density and structure, unspecified site; E78.5 Hyperlipidemia, unspecified
CPT/HCPCS: 36415; 80053; 80061; 82306; 85025

== ENCOUNTER 2024-08-01 08:34 | Outpatient (CLI) | payer MEDICARE, SELFPAY ==
--- NOTE | ~2024-08-01 | US_ITS ---
EXAMINATION: US right upper quadrant DATE: 08/01/2024 09:15 INDICATION: Abnormal levels of other serum enzymes. TECHNIQUE: Multiple grayscale and Doppler ultrasound images of the abdomen were obtained. COMPARISON: CT abdomen and pelvis 07/20/2023 FINDINGS: The visualized portions of the head and body of the pancreas are normal. The liver is srikanth l without focal lesion. There is normal flow in main portal vein. The gallbladder is absent. The comm on duct is normal and measures 4 mm. There is antegrade flow in main portal vein. IMPRESSION: 1. No etiology for abnormal liver function tests. Reviewed, dictated and finalized at location B.
== END 2024-08-01 08:35 | disposition home or self-care (01) ==
PROVIDERS: PCP Family Medicine; Visit Provider Nurse Practitioner
DX: R74.8 Abnormal levels of other serum enzymes (principal)
CPT/HCPCS: 76705

== ENCOUNTER 2024-08-03 08:27 | Outpatient (CLI) | payer MEDICARE, SELFPAY ==
[2024-08-03 18:52] LABS: Alanine Aminotransferase 20 U/L (6-35); Albumin Level 4.3 g/dL (3.5-5.1); Alkaline Phosphatase 101 U/L (38-126); Anion Gap 10 mmol/L (4-12); Aspartate Amino Transferase 38 U/L (14-36); Bilirubin,Total 0.5 mg/dL (0.2-1.3); Blood Urea Nitrogen 20 mg/dL (7-17); Calcium 9.3 mg/dL (8.4-10.2); Carbon Dioxide 27 mmol/L (22-30); Chloride 98 mmol/L (98-107); Estimated Glomerular Filt Rate > 60; Glucose 90 mg/dL (65-110); Potassium 4.6 mmol/L (3.4-5.0); Sodium 135 mmol/L (137-145)
[2024-08-03 19:09] LABS: Iron 93 ug/dL (37-170)
[2024-08-03 19:16] LABS: Thyroid Stimulating Hormone 0.982 uIU/mL (0.465-4.680)
[2024-08-03 19:18] LABS: Percent Iron Saturation 31 % (20-50)
[2024-08-03 19:39] LABS: HIV 1/2 Ab P24 Ag Result Negative (Negative)
[2024-08-03 19:50] LABS: Hepatitis B Surface Antigen Negative (Negative)
[2024-08-03 20:07] LABS: Hepatitis C Virus Antibody Negative (Negative)
[2024-08-07 14:53] LABS: Immunoglobulin A 252 mg/dL (70-320); TTG IGA AB <1.0 U/mL
== END 2024-08-03 08:28 | disposition home or self-care (01) ==
PROVIDERS: PCP Family Medicine; Visit Provider Nurse Practitioner
DX: E78.5 Hyperlipidemia, unspecified (principal); R74.8 Abnormal levels of other serum enzymes
CPT/HCPCS: 36415; 80053; 82784; 83540; 83550; 84443; 86364; 86703; 86803; 87340; G0432

== ENCOUNTER 2024-12-28 07:55 | Outpatient (CLI) | payer MEDICARE, SELFPAY ==
--- OUTSIDE RECORDS SUMMARY | 2024-12-28 08:01 | XMS_ITS | Referral Summary ---
[facility] Organization [facility] Address [address] [place] [address] Care Team Providers Care [employer]ke Coupler Name Role Phone Rosemarie Nowak Primary Care Provider + Allergies Active Allergy Reactions Criticality Noted Date Comments Prochlorperazine Other (See comments) Low 8 COULD NOT KEEP TONGUE IN MOUTH...SPASTIC TONGUE Tongue spasms Medications losartan-hydroC HLOROthiazide (HYZAAR) 50-12.5 mg per tablet 1 TABLET ORALLY DAILY NEEDS APPOINTMENT FOR FURTHER REFILLS 4 Active multivitamin/ir on/folic acid (CENTRUM WOMEN ORAL) Take by mouth Active calcium citrate 250 mg calcium tablet tablet Take by mouth Ac tive Active Problems No known active problems Social History Tobacco Use Types Packs/Day Years Used Date Smoking Tobacco: Former Cigarettes Tobacco Cessation:Counseling Given: Not Answered Personal Safety Answer Date Recorded Getting School Help Needed Not on file 12/17 Comments Unknown Sex and Gender Information Value Date Recorded Sex Assigned at Not on file Legal Sex Female 1:37 PM 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 us Historical Provider GI PROCEDURE ORDERABLES F inal Result from Last 3 Months or Most Recently Relevant to Health Maintenance Insurance [employer] MEDICARE Care Teams [employer] Relationship Specialty Start Date End Date Rosemarie Nowak DO [facility] [place] [address] PCP - General Family Medicine 02/29/24
--- OUTSIDE RECORDS SUMMARY | 2024-12-28 08:01 | XMS_ITS | Clinical Summary ---
Author Organization [facility] Address [address] [place] [address] Care Team Providers Care Centerless Grinder Name Role Phone Eva Orlando PA-C Primary Care Provider [phone] Allergies Active Allergy Reactions Criticality Noted Date Comments Prochlorperazine Other (see comment) 02/25/2018 Tongue spasms Medications VENTOLIN HFA 108 (90 Base) MCG/ACT inhaler Take 2 Inhalers by mouth as needed. 1 8 Active doxycycline monohydrate 100 MG tablet Take 1 tablet by mouth 2 (two) times a day. 8 Active hydrochlorothiaz griffin 12.5 MG capsule Take 12.5 mg by mouth daily. 0 8 Active Social History Tobacco Use Types Packs/Day Years Used Date Smoking Tobacco: Former Smokeless Tobacco: Never Comments:QUIT 20 YRS. 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 Gender Identity Not on file Sexual Orientation Not on file Last Filed Vital Signs Vital Sign Reading Time Taken Comments Blood Pressure 136/70 07/05/2018 10:34 AM CDT Pulse 74 07/05/2018 10:34 AM CDT Temperature 37.6 C (99.7 F) 03/10/2018 9:40 AM CDT Respiratory Rate 14 03/10/2018 10:40 AM CDT Oxygen Saturation 97% 03/10/2018 10:40 AM CDT Inhaled Oxygen Concentration - - Weight 65.8 kg (145 lb) 07/05/2018 10:34 AM CDT Height 165.1 cm (5' 5 ) 07/05/2018 10:34 AM CDT Body Mass Index 24.13 07/05/2018 10:34 AM CDT Plan of Treatment Health Maintenance Due Date Last Done Comments Hepatitis C 01[birth year]10/1968 DTaP, Tdap and Td Vaccines (1 - Tdap) 09/04/2011 09/03/2011, 1950 Annual Medicare Wellness Visit 01/10/2013 Zoster Vaccines (2 of 3) 11/29/2013 10/04/2013 RSV Immunization or 60+ Years (1 - 1-dose 75+ series) 01/10/2023 COVID-19 Vaccine (3 - season) 2024 12/10/2020, 10/29/2020 Influenza Adult (#1) 2024 07/17/2021, 06/09/2017, 07/04/2013, Additional history exists Pneumococcal Vaccine: 65+ Years Completed 05/26/2016, 10/04/2013, 03/04/2013 Dexa Scan (General) Completed 07/04/2018 Meningococcal B Vaccine Aged Out No l onger eligible based on patient's age to complete this topic Meningococcal Vaccine Aged Out No noé jimmy eligible based on patient's age to complete this topic RSV Immunizations Under 20 Months Aged Out No longer eligible based on patient's age to complete this topic Procedures Procedure Name Priority Date/Time Associated Diagnosis Comments BONE DENSITY/DEXA Routine 07/04/2018 1:5 5 PM CDT Menopause Postmenopausal status from Last 3 Months or Most Recently Relevant to Health Maintenance Results * BONE DENSITY/DEXA (07/04/2018 1:55 PM CDT) Anatomical Region Laterality Modality Bone Bone Density 07/04/2018 4:25 PM CDT Impressions 07/04/2018 4:28 PM CDT Impression: BMD measured at AP lumbar spine, both femoral necks and left total hip at WHO category level of osteopenia. BMD measured at right total hip at level of normal. Interpreted By: Claus Dawson MD, 07/04/2018 4:25 PM Narrative 07/04/2018 4:28 PM CDT 07/04/2018 Examination: DEXA Bone densitometry Clinical history: Smoking history. Exercise. History of steroid medication use. Postmenopausal. Technique: DEXA bone mineral density evaluation was performed in the AP projection over the lumbar spine and over both hips in the AP projection utilizing standard imaging techniques. Assessment: The BMD measured at the AP spine L1-L4 is 1.008 g/cm2 with a T-score of -1.4 and a Z-Score of 0.2. The patient is considered osteopenic according to World Health Organization (WHO) criteria. Bone density is between 10 and 25% below young normal. Fracture risk is moderate. Treatment is advised. The BMD measured at the femur total left is 0.825 g/cm2 with a T-score of -1.4 and a Z-Score of 0.0. The patient is considered osteopenic according to World Health Organization (WHO) criteria. Bone density is between 10 and 25% below young normal. Fracture risk is moderate. Treatment is advised. The BMD measured at left femoral neck is 0.831 g/sq cm resulting in a T score of -1.5 and a Z score of 0.2, values at the WHO category level of osteopenia. The BMD measured at the femur total right is 0.881 g/cm2 with a T-score of -1.0 and aZ-Score of 0.5. Bone density is up to 10% below young normal. This patient is considered normal according to the World Health Organization (WHO) criteria. Fracture risk is low. The BMD measured at the right femoral neck is 0.825 g/sq cm resulting in a T score of -1.5 and a Z score of 0.2, values at the WHO category level of osteopenia. FRAX results: 10 year probability of major osteoporotic fracture 9.8% and of hip fracture 1.5%. Recommendations: All patients should ensure an adequate intake of dietary calcium and vitamin D. The NOF recommend adults under the age of 50 need 1000 mg of calcium and 400-800 IU of vitamin D daily. Effective therapy for the prevention and treatment of osteoporosis include biphosphonates. Follow-up: People with diagnosed cases of osteoporosis or at high risk for fracture should have regular bone mineral density test. For patients eligible for Medicare, routine testing is allowed once every 2 years. Testing frequency can be increased to one year for patients who have rapidly progressing disease, those who are receiving or discontinuing medical therapy to restore bone mass, or have additional risk factors. Based on these results, a followup exam is recommended in no earlier than 2 years for routine follow-up. As early as 1 year for assessment of efficacy of new medication therapy for treatment of osteoporosis. Procedure Note Claus Dawson MD - 07/04/2018 07/04/2018 Examination: DEXA Bone densitometry Clinical history: Smoking history. Exercise. History of steroidmedication use. Postmenopausal. Technique: DEXA bone mineral density evaluation was performed in the AP projection over the lumbar spine and over both hips in the AP projection utilizing standard imaging techniques. Assessment: The BMD measured at the AP spine L1-L4 is 1.008 g/cm2 with a T-score of -1.4 and a Z-Score of 0.2. The patient is considered osteopenic according to World Health Organization (WHO) criteria. Bone density is between 10 and 25% below young normal. Fracture risk is moderate.Treatment is advised. The BMD measured at the femur total left is 0.825 g/cm2 with a T-scoreof -1.4 and a Z-Score of 0.0. The patient is considered osteopenic according to World Health Organization (WHO) criteria. Bone density is between 10 and 25% below young normal. Fracture risk is moderate.Treatment is advised. The BMD measured at left femoral neck is 0.831 g/sq cm resulting in a T score of -1.5 and a Z score of 0.2, values at the WHO category level of osteopenia. The BMD measured at the femur total right is 0.881 g/cm2 with a T-scoreof -1.0 and aZ-Score of 0.5. Bone density is up to 10% below youngnormal. This patient is considered normal according to the World Health Organization (WHO) criteria. Fracture risk is low. The BMD measured at the right femoral neck is 0.825 g/sq cm resulting bree T score of -1.5 and a Z score of 0.2, values at the WHO category levelof osteopenia. FRAX results: 10 year probability of major osteoporotic fracture 9.8%and of hip fracture 1.5%. Recommendations: All patients should ensure an adequate intake of dietary calcium and vitamin D. The NOF recommend adults under the age of 50 need 1000 mg of calcium and 400-800 IU of vitamin D daily. Effective therapy for the prevention and treatment of osteoporosis include biphosphonates. Follow-up: People with diagnosed cases of osteoporosis or at high risk for fracture should have regular bone mineral density test. For patients eligible for Medicare, routine testing is allowed once every 2 years. Testingfrequency can be increased to one year for patients who have rapidly progressing disease, those who are receiving or discontinuing medical therapy to restore bone mass, or have additional risk factors. Based on these results, a followup exam is recommended in no earlier than2 years for routine follow-up. As early as 1 year for assessment ofefficacy of new medication therapy for treatment of osteoporosis. Impression: BMD measured at AP lumbar spine, both femoral necks and left total hipat WHO category level of osteopenia. BMD measured at right total hip at level of normal. Interpreted By: Claus Dawson MD, 07/04/2018 4:25 PM Paige Luther MD DEXA Final Result from Last 3 Months or Most Recently Relevant to Health Maintenance Insurance AET Advance Directives Documents on File Type Date Recorded Patient Seasoner Expl anation Advance Directives and Livin g Will 03/14/2018 9:36 AM LIVING WILL Advance Directives and Livin g Will 12/16/2017 LIVING WILL Advance Directives and Livin g Will 12/07/2017 LIVING WILL Advance Directives and Livin g Will 11/29/2017 LIVING WILL Advance Directives and Livin g Will 11/25/2017 LIVING WILL Advance Directives and Livin g Will 07/22/2017 LIVING WILL Care Teams Centerless Grinder Relationship Specialty Start Date End Date Eva Orlando PA-C [address] [place] [address] PCP - General PHYSICIAN PROJECT CONTROL ANALYST 09/16/20
--- OUTSIDE RECORDS SUMMARY | 2024-12-28 08:01 | XMS_ITS | Encounter Summary ---
Author Organization [facility] Address [address] [place] [address] Care Team Providers Care Dashboard Developer Name Role Phone Lynn Chester NP Primary Care Provider [phone] Paige Luther MD Primary Care [facility] Orlando PA-C Primary Care Provider [phone] Encounter Details Date Type Department Care Team (Late st Contact Info) Description 12/18/2017 Abstract [facility] CONVERSION [address] [place] [address] , Generic MD Goldy Social History Tobacco Use Types Packs/Day Years Used Date Smoking Tobacco: Never Assessed Comments Unknown Sex and Gender Information Value Date Recorded Sex Assigned at Not on file 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
--- OUTSIDE RECORDS SUMMARY | 2024-12-28 08:01 | XMS_ITS | Clinical Summary ---
Author Organization [facility] Address [address], [facility] [address] [place] [address] Phone Care Team Providers Care Supervisor Powdered Metal Name Role Phone Unavailable Primary Care Provider Unavailabl e Allergies Active Allergy Reactions Criticality Noted Date Comments Prochlorperazine Maleate Other (see Comments) COULD NOT KEEP TONGUE IN MOUTH...SPASTIC TONGUE Medications Cholecalciferol (Vitamin D3) 1000 UNIT TabletIndication s:Vitamin D deficiency Take by mouth. Active Multiple Vitamin (MULTI-VITAMIN PO) Take by mouth. Active MAGNESIUM PO Take 250 mg by mouth. Active Probiotic Product (PROBIOTIC PO) 10/05/2021 Acti ve LOSARTAN POTASSIUM PO Take 12.5 mg by mouth daily. Active atorvastatin (LIPITOR) 20 MG Tablet Take 20 mg by mouth nightly. Active Active Problems Problem Noted Date Diagnosed Date Elevated HDL 07/17/2021 Hyperlipidemia 07/17/2021 Right knee pain 07/17/2021 Cystocele with prolapse 07/17/2021 History of breast cancer 05/19/2021 Radiation pneumonitis 05/19/2021 Allergic rhinitis 05/19/2021 Diverticulosis 05/19/2021 Vitamin D deficiency 05/19/2021 Insomnia 05/19/2021 IBS (irritable bowel syndrome) Overview (08/15/2015): CONSTIPATION HTN (hypertension) Osteopenia Resolved Problems Problem Noted Date Diagnosed Date Resolved Date Encounter for immunization 07/17/2021 1 Diverticulitis 05/19/2021 Immunizations Immunization Administration Dates Next Due Covid-19, Mrna, Lnp-s, PF, 1 00 mcg/0.5 mL Dose (Moderna) 12/10/2020,10/29/2020 Influenza Vaccine greater than 3 yrs 07/04/2013 Influenza Vaccine, Quadrivalent, PF 07/17/2021 PUR PCV-13 05/26/2016 Pneumococcal Vaccine Adult - 23 Valent 3 TD VACCINE 09/03/2011 Family History Medical History Relation Name Comments Hypertension Brother 1 Hypertension Brother 2 Diabetes Father Heart Disease Father Hypertension Father Hypertension Maternal Grandfather Dementia Mother Thyroid Disease Mother Relation Name Status Comments Brother 1 Brother 2 Father Maternal Grandfather Mother Social History Tobacco Use Types Packs/Day Years Used Date Smoking Tobacco: Former Cigarettes Q uit: 1999 Smokeless Tobacco: Never Tobacco Cessation:Counseling Given: Not Answered Alcohol Use Standard Drinks/Week Comments Yes 0 (1 standard drink = 0.6 oz pur e alcohol) occassionally PHQ-2 Answer Date Recorded Total Score - Questions 1-9 0 05/04 Education Answer Date Recorded What is the highest level of school you have completed or the highest degree you have received? Some college, no degree 10/07/2021 Comments No Sex and Gender Information Value Date Recorded Sex Assigned at Not on file Legal Sex Female 11:21 PM CDT Gender Identity Not on file Sexual Orientation Not on file Last Filed Vital Signs Vital Sign Reading Time Taken Comments Blood Pressure 165/76 10/26/2022 8:32 AM AUTOMATIC PAINT SPRAYER OPERATOR Pulse 61 10/26/2022 8:32 AM AUTOMATIC PAINT SPRAYER OPERATOR Temperature 36.7 C (98.1 F) 10/26/2022 8:32 AM AUTOMATIC PAINT SPRAYER OPERATOR Respiratory Rate 12 10/26/2022 8:32 AM AUTOMATIC PAINT SPRAYER OPERATOR Oxygen Saturation 100% 10/26/2022 8:32 AM AUTOMATIC PAINT SPRAYER OPERATOR Inhaled Oxygen Concentration - - Weight 68 kg (150 lb) 10/16/2022 3:00 PM AUTOMATIC PAINT SPRAYER OPERATOR Height 168.9 cm (5' 6.5 ) 10/16/2022 3:00 PM AUTOMATIC PAINT SPRAYER OPERATOR Body Mass Index 23.85 10/16/2022 3:00 PM AUTOMATIC PAINT SPRAYER OPERATOR Plan of Treatment Health Maintenance Due Date Last Done Comments Hepatitis C Virus (HCV) Screening 1950 TdaP Immunization 1950 Respiratory Syncytial Virus (RSV) Immunization (Adult) (1 - 1-dose 75+ series) 01/10/2023 Influenza Immunization (#1) 06/04/202406/05, 07/17/2021, 07/04/2013 SARS-COV-2 Immunization ( season) 2024 09/10/2022, 08/09/2021, 12/10/2020, Additional history exists DTaP/Tdap/Td Immunization Discontinued 09/03/2011 Pneumococcal Immunization (50+ years) Completed 05/26/2016, 03/04/2013 Pneumococcal Immunization Combined Discontinued 05/26/2016, 03/04/2013 Mammogram Discontinued 07/15/2021, 09/03, 07/25/2019, Additional history exists Zoster Immunization Completed 07/30/2022, Hepatitis B Immunization Aged Out No longer eligible based on patient's age to complete this topic Meningococcal Immunization (ACWY) Aged Out No longer eligible based on patient's age to complete this topic Rotavirus Immunization Aged Out No lo nger eligible based on patient's age to complete this topic Medical Devices Implanted Type Area Special Education Tutor Device Identifier Shelf Expiration Date Model / Serial / Lot [employer] Simplicity Iol Delivery System Implanted:Qty: 1 on 10/26/2022 by Raman Kraus MD at [facility] Right: Eye 07/29/2025 [id number] / [id number] / [id number] Procedures Procedure Name Priority Date/Time Associated Diagnosis Comments [facility] SCREENING BILATERAL DIGITAL W CAD W ANGELO Routine 07/15/2021 7:21 AM CDT Encounter for screening mammogram for breast cancer from Last 3 Months or Most Recently Relevant to Health Maintenance Results * [facility] SCREENING BILATERAL DIGITAL W CAD W ANGELO (07/15/2021 7:21 AM CDT) Anatomical Region Laterality Modality breast Bilateral Mammography 07/15/2021 9:29 AM CDT Narrative 07/21/2021 3:52 PM CDT - [facility] SCREENING BILATERAL DIGITAL W CAD W ANGELO BILATERAL DIGITAL SCREENING MAMMOGRAM 3D/2D WITH CAD WITH MEDIOLATERAL OBLIQUE CRANIOCAUDAL: 07/15/2021 The study was acquired using digital technology and interpreted from soft copy. Current study was also evaluated with ICAD version 7.2. 2D digital mammographic views, as well as 3D digital tomosynthesis were performed in the CC and MLO projections. CLINICAL: Routine screening. Patient has no complaints. Patient states history of right breast lumpectomy and radiation therapy for pre-cancerous cells. Maternal aunt with breast cancer. COMPARISONS: Comparison is made to exams dated: 07/04/2018, 09/19/2020, 07/25/2019, and 04/19/2019 [facility]. BREAST TISSUE:The tissue of both breasts is heterogeneously dense. This may lower the sensitivity of mammography. FINDINGS: There are benign vascular calcifications in both breasts. No significant masses, calcifications, or other findings are seen in either breast. There has been no significant interval change. IMPRESSION: BI-RAD 2 BENIGN There is no mammographic evidence of malignancy. A 1 year screening mammogram is recommended. The patient has been or will be contacted. The patient will be entered into a reminder system with a target due date of 1 year for her next screening exam. Electronically signed by: Jeremias rincon/rahel:07/21/2021 15:35:31 Drafting Engineer(s): RT Wellington(R)(M), [facility] letter sent: Normal Exam Reading location: [facility] BI-RADS: 2 Benign Procedure Note Jeremias Smith MD - 07/21/2021 - [facility] SCREENING BILATERAL DIGITAL W CAD W ANGELO BILATERAL DIGITAL SCREENING MAMMOGRAM 3D/2D WITH CAD WITH MEDIOLATERAL OBLIQUE CRANIOCAUDAL: 07/15/2021 The study was acquired using digital technology and interpreted from soft copy. Current study was also evaluated with ICAD version 7.2. 2D digital mammographic views, as well as 3D digital tomosynthesis were performed in the CC and MLO projections. CLINICAL: Routine screening. Patient has no complaints. Patient states history of right breast lumpectomy and radiation therapy for pre-cancerous cells. Maternal aunt with breast cancer. COMPARISONS: Comparison is made to exams dated: 07/04/2018, 09/19/2020, 07/25/2019, and 04/19/2019 [facility]. BREAST TISSUE:The tissue of both breasts is heterogeneously dense. This may lower the sensitivity of mammography. FINDINGS: There are benign vascular calcifications in both breasts. No significant masses, calcifications, or other findings are seen in either breast. There has been no significant interval change. IMPRESSION: BI-RAD 2 BENIGN There is no mammographic evidence of malignancy. A 1 year screening mammogram is recommended. The patient has been or will be contacted. The patient will be entered into a reminder system with a target due date of 1 year for her next screening exam. Electronically signed by: Jeremias rincon/rahel:07/21/2021 15:35:31 Drafting Engineer(s): RT Wellington(R)(M), [facility] letter sent: Normal Exam Reading location: [facility] BI-RADS: 2 Benign us Heather Luu MD IMG MAMMO ORDERABLES Final R esult from Last 3 Months or Most Recently Relevant to Health Maintenance Insurance MEDICARE C AETNA Advance Directives Documents on File Type Date Recorded Patient Saw Grinder Expl anation Power of Project Engineer for Health Care 10/26/2022 7:08 AM DURABLE POWER OF CUP MACHINE OPERATOR FOR HEALTHCARE
--- OUTSIDE RECORDS SUMMARY | 2024-12-28 08:01 | XMS_ITS | Clinical Summary ---
Author Organization [facility] Address [address] [place] [address] Care Team Providers Care Solid Plasterer Name Role Phone Rosemarie Nowak Primary Care [...] tive Active Problems No known active problems Surgical History Surgery Date Site/Laterality Comments BREAST BIOPSY 05/27/2017 Right BREAST LUMPECTOMY 10/04/2016 - 10/03/2017 GALLBLADDER SURGERY 10/04/1976 - 10/03/1977 APPENDECTOMY 10/04/1976 - 10/03/1977 CATARACT EXTRACTION 10/04/2022 - 10/03/2023 Bilateral Medical History Medical History Date Comments Hypertension Depression Family History Medical History Relation Name Comments Thyroid disease Mother Glaucoma Neg Hx Macular degeneration Neg Hx Relation Name Status Comments Mother Social History Tobacco Use Types Packs/Day Years Used Date Smoking Tobacco: Former Cigarettes Tobacco Cessation:Counseling Given: Not Answered Personal Safety Answer Date Recorded Getting School Help Needed Not on file 12/17 Comments Unknown Sex and Gender Information Value Date Recorded Sex Assigned at Not on file Legal Sex Female 1:37 PM BLUE PRINTS TRIMMER Gender Identity Not on file Sexual Orientation Not on file Obstetrics History Plan of Treatment Health Maintenance Due Date Last Done Comments Depression Screening 1950 Fall Risk Assessment 1950 Hepatitis C Screening 1950 Hepatitis B Screening 01/10/1966 DTaP/Tdap/Td Vaccine (1 - Tdap) 09/04/2011 1 Well Visit 65+ 01/10/2013 Osteoporosis Screening-Bone Density Scan 07/04/2020 07/04/2018 Covid-19 Vaccine (6 - 2023-2 5 season) 2024 06/21/2023, 09/10/2022, 08/09/2021, Additional history exists Influenza Vaccine (#1) 2024 3, 06/28/2022, 07/17/2021, Additional history exists Colon Cancer Screening-Colonoscopy Discontinued 07/04/2015, 07/04/2015 Pneumococcal vaccine 65+ Completed 05/26/2016, 0610/2012 Zoster Vaccine Completed 07/30/2022, 04/29/2022 Procedures Procedure Name Priority Date/Time Associated Diagnosis Comments COLONOSCOPY IMAGES 07/04/2015 from Last 3 Months or Most Recently Relevant to Health Maintenance Results * COLONOSCOPY IMAGES (07/04/2015) Anatomical Region Laterality Modality Other Narrative 07/04/2015 Ordered by an unspecified provider. Historical Provider GI PROCEDURE ORDERABLES F inal Result from Last 3 Months or Most Recently Relevant to Health Maintenance Insurance AET MEDICARE Care Teams Solid Plasterer Relationship Specialty Start Date End Date Rosemarie Nowak DO [address] [place] [address] DR DIMAS [address] [place] [id number] PCP - General Family Medicine 02/29/24
[2024-12-28 19:28] LABS: Basophils Absolute Auto 0.1 K/mm3 (0.0-0.1); Basophils Percent Auto 1.7 % (0.2-1.2); Eosinophils Absolute Auto 0.1 K/mm3 (0-0.3); Eosinophils Percent Auto 2.7 % (0-4.4); Hematocrit 40.8 % (37.0-47.0); Hemoglobin 13.3 g/dL (12.0-15.0); Immature Granulocyte Absolute 0.02 K/mm3 (0.00-0.031); Immature Granulocyte Percent A 0.4 % (0-0.5); Lymphocytes Absolute Auto 1.05 K/mm3 (0.9-3.2); Lymphocytes Percent Auto 20.2 % (18.3-44.2); Mean Corpuscular HGB Conc 32.6 g/dl (32-36); Mean Corpuscular Hemoglobin 31.2 pg (26-34); Mean Corpuscular Volume 95.8 fl (80-100); Mean Platelet Volume 9.3 fl (7.4-10.4); Monocytes Absolute Auto 0.5 K/mm3 (0.1-0.6); Monocytes Percent Auto 9.4 % (2.6-8.5); Neutrophils Absolute Auto 3.4 K/mm3 (1.3-6.7); Neutrophils Percent Auto 65.6 % (45.5-73.1); Platelet Count Result 305 k/mm3 (150-375); Red Blood Count 4.26 M/mm3 (4.2-5.4); Red Cell Distribution Width 12.7 % (11.5-14.5); White Blood Count 5.2 K/mm3 (4.5-10.0)
[2024-12-28 19:42] LABS: Alanine Aminotransferase 20 U/L (6-35); Albumin Level 4.2 g/dL (3.5-5.1); Alkaline Phosphatase 98 U/L (38-126); Anion Gap 8 mmol/L (4-12); Aspartate Amino Transferase 35 U/L (14-36); Bilirubin,Total 0.7 mg/dL (0.2-1.3); Blood Urea Nitrogen 13 mg/dL (7-17); Calcium 8.9 mg/dL (8.4-10.2); Carbon Dioxide 27 mmol/L (22-30); Chloride 97 mmol/L (98-107); Estimated Glomerular Filt Rate > 60; Glucose 87 mg/dL (65-110); Potassium 4.4 mmol/L (3.4-5.0); Sodium 132 mmol/L (137-145)
[2024-12-28 20:54] LABS: Hemoglobin A1C 5.2 % (<5.7)
== END 2024-12-28 07:56 | disposition home or self-care (01) ==
LOC: ANHGOSHLAB 07:57
PROVIDERS: PCP Family Medicine; Visit Provider Family Medicine
DX: R73.9 Hyperglycemia, unspecified (principal); I10 Essential (primary) hypertension
CPT/HCPCS: 36415; 80053; 83036; 85025

== ENCOUNTER 2025-01-02 07:55 | Outpatient (CLI) | payer MEDICARE, SELFPAY ==
--- NOTE | ~2025-01-02 | MM_ITS ---
EXAMINATION: MM screening rubén BI w carlos HISTORY: Screening mammogram TECHNIQUE: Craniocaudal and mediolateral oblique 3-D tomosynthesis images were obtained and synthetic 2-D images were generated. CAD analysis was submitted and interpreted. COMPARISON: 11/15/2023, 07/27/2022 BREAST PARENCHYMAL COMPOSITION:Dense: The breasts are heterogeneously dense, which may obscure small masses. FINDINGS: No suspicious mass, calcification, or architectural distortion are identified in either sharad ast to suggest malignancy. There has been no suspicious interval change. IMPRESSION: No mammographic evidence of malignancy. Recommend routine screening mammography in one year. BI-RADS Category 1: Negative Reviewed, dictated and finalized at location .
--- OUTSIDE RECORDS SUMMARY | 2025-01-02 08:00 | XMS_ITS | Encounter Summary ---
Author Organization [facility] Address [address] [place] [address] Care Team Providers Care Floatlight Powder Mixer Name Role Phone Lynn Chester NP Primary Care Provider [phone] Paige Luther MD Primary Care Provider [facility] e Eva Orlando PA-C Primary Care Provider [phone] Encounter Details Date Type Department Care Team (Late st Contact Info) Description 12/18/2017 Abstract [facility] CONVERSION [address] [place] [address] , Generic MD Goldy Social History Tobacco Use Types Packs/Day Years Used Date Smoking Tobacco: Never Assessed Comments Unknown Sex and Gender Information Value Date Recorded Sex Assigned at Not on file Legal Sex Female 10:49 PM PLASTIC CARD GRADER CARDROOM Gender Identity Not on file Sexual Orientation Not on file documented as of this encounter Plan of Treatment Not on file documented as of this encounter Visit Diagnoses Not on filedocumented in this encounter Care Teams Floatlight Powder Mixer Relationship Specialty Start Date End Date Lynn Chester NP PCP - General NURSE PRACTITIONER 02/22/18 04/02/19 Paige Luther MD PCP - General FAMILY PRACTICE 04/03/19 09/15/20 Eva Orlando PA-C [address] [place] [address] PCP - General PHYSICIAN LOG TUMBLER 09/16/20 documented as of this encounter
--- OUTSIDE RECORDS SUMMARY | 2025-01-02 08:00 | XMS_ITS | Clinical Summary ---
Author Organization [facility] Address [address] [place] [address] Care Team Providers Care Silverware Assembler Name Role Phone Eva Orlando PA-C Primary Care Provider [phone] Allergies Active Allergy Reactions Criticality Noted Date [...] on file Legal Sex Female 10:49 PM BIG DATA DEVELOPER Gender Identity Not on file Sexual Orientation [...] Documents on File Type Date Recorded Patient Executive Director Expl anation Advance Directives and Livin g Will 03/14/2018 9:36 AM LIVING WILL Advance Directives and Livin g Will 12/16/2017 LIVING WILL Advance Directives and Livin g Will 12/07/2017 LIVING WILL Advance Directives and Livin g Will 11/29/2017 LIVING WILL Advance Directives and Livin g Will 11/25/2017 LIVING WILL Advance Directives and Livin g Will 07/22/2017 LIVING WILL Care Teams Silverware Assembler Relationship Specialty Start Date End Date Eva Orlando PA-C [address] [place] [address] PCP - General PHYSICIAN DRYER FEEDER 09/16/20
--- OUTSIDE RECORDS SUMMARY | 2025-01-02 08:00 | XMS_ITS | Clinical Summary ---
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
--- OUTSIDE RECORDS SUMMARY | 2025-01-02 08:00 | XMS_ITS | Referral Summary ---
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
--- OUTSIDE RECORDS SUMMARY | 2025-01-02 08:00 | XMS_ITS | Clinical Summary ---
Author Organization [facility] Address [address], [facility] [address] [place] [address] Phone Care Team Providers Care Importer Exporter Name Role Phone Unavailable Primary Care Provider [...] Comments Blood Pressure 165/76 10/26/2022 8:32 AM MOVING WORKER Pulse 61 10/26/2022 8:32 AM MOVING WORKER Temperature 36.7 C (98.1 F) 10/26/2022 8:32 AM MOVING WORKER Respiratory Rate 12 10/26/2022 8:32 AM MOVING WORKER Oxygen Saturation 100% 10/26/2022 8:32 AM MOVING WORKER Inhaled Oxygen Concentration - - Weight 68 kg (150 lb) 10/16/2022 3:00 PM MOVING WORKER Height 168.9 cm (5' 6.5 ) 10/16/2022 3:00 PM MOVING WORKER Body Mass Index 23.85 10/16/2022 3:00 PM MOVING WORKER Plan of Treatment Health Maintenance Due Date [...] this topic Medical Devices Implanted Type Area Manager State Device Identifier Shelf Expiration Date Model / Serial / Lot [employer]wi [employer] And [employer] Simplicity Iol Delivery System Implanted:Qty: 1 on 10/26/2022 by Raman Kraus MD at [facility] Right: Eye 07/29/2025 [id number] / [id number] / [id number] Procedures Procedure Name Priority Date/Time Associated Diagnosis Comments [facility] SCREENING BILATERAL DIGITAL W CAD W [...] exams dated: 07/04/2018, 09/19/2020, 07/25/2019, and 04/19/2019 [facility]. BREAST TISSUE:The tissue of both breasts is [...] exam. Electronically signed by: Jeremias rincon/rahel:07/21/2021 15:35:31 Vice President Industrial Relations(s): RT Wellington(R)(M), [facility] letter sent: Normal Exam Reading location: [facility] BI-RADS: 2 Benign Procedure Note Jeremias [...] exams dated: 07/04/2018, 09/19/2020, 07/25/2019, and 04/19/2019 [facility]. BREAST TISSUE:The tissue of both breasts is [...] exam. 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
== END 2025-01-02 07:56 | disposition home or self-care (01) ==
PROVIDERS: PCP Family Medicine; Visit Provider Family Medicine
DX: Z12.31 Encounter for screening mammogram for malignant neoplasm of breast (principal)
CPT/HCPCS: 77063; 77067

== ENCOUNTER 2025-07-19 08:50 | Outpatient (CLI) | payer MEDICARE, SELFPAY ==
--- OUTSIDE RECORDS SUMMARY | 2025-07-19 09:21 | XMS_ITS | Clinical Summary ---
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 Gender Identity Not on file Sexual Orientation [...] 10:34 AM CDT Height 165.1 cm (5' 5) 07/05/2018 10:34 AM CDT Body Mass Index [...] series) 01/10/2023 COVID-19 Vaccine (3 - season) 2025 12/10/2020, 10/29/2020 Influenza Adult (#1) 2025 07/17/2021, 06/09/2017, 07/04/2013, Additional history exists Pneumococcal Vaccine: 50+ Years Completed 05/26/2016, 10/04/2013, 03/04/2013 Dexa Scan [...] Most Recently Relevant to Health Maintenance Insurance NA MEDICARE Advance Directives Documents on File Type Date Recorded Patient Hay Stacker Expl anation Advance Directives and Livin g Will 03/14/2018 9:36 AM LIVING WILL Advance Directives and Livin g Will 12/16/2017 LIVING WILL Advance Directives and Livin g Will 12/07/2017 LIVING WILL Advance Directives and Livin g Will 11/29/2017 LIVING WILL Advance Directives and Livin g Will 11/25/2017 LIVING WILL Advance Directives and Livin g Will 07/22/2017 LIVING WILL Care Teams Mustanger Relationship Specialty Start Date End Date Eva Orlando PA-C [address] [place] [address] PCP - General PHYSICIAN HEDGE FUND TRADER 09/16/20
--- OUTSIDE RECORDS SUMMARY | 2025-07-19 09:21 | XMS_ITS | Clinical Summary ---
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 Gender Identity Not on file Sexual Orientation Not on file Obstetrics History Plan of Treatment Health Maintenance Due Date Last Done Comments Depression Screening 1950 Fall Risk Assessment 1950 Hepatitis C Screening 1950 Hepatitis B Screening 01/10/1966 DTaP/Tdap/Td Vaccine (1 - Tdap) 09/04/2011 1 Well Visit 65+ 01/10/2013 Osteoporosis Screening-Bone Density Scan 07/04/2020 07/04/2018 Covid-19 Vaccine (6 - 2024-2 6 season) 2025 06/21/2023, 09/10/2022, 08/09/2021, Additional history exists Influenza Vaccine (#1) 2025 3, 06/28/2022, 07/17/2021, Additional history exists Colon [...] Health Maintenance Insurance AET MEDICARE Care Teams Cutting And Boning Supervisor Relationship Specialty Start Date End Date Rosemarie Nowak DO [address] [place] [address] DR DIMAS [address] [place] [address] PCP - General Family Medicine 02/29/24
--- OUTSIDE RECORDS SUMMARY | 2025-07-19 09:21 | XMS_ITS | Clinical Summary ---
Author Organization [facility] Address [address], [facility] [address] [place] [address] Phone Care Team Providers Care File Keeper Name Role Phone Unavailable Primary Care Provider [...] Comments Blood Pressure 165/76 10/26/2022 8:32 AM OYSTER SORTER Pulse 61 10/26/2022 8:32 AM OYSTER SORTER Temperature 36.7 C (98.1 F) 10/26/2022 8:32 AM OYSTER SORTER Respiratory Rate 12 10/26/2022 8:32 AM OYSTER SORTER Oxygen Saturation 100% 10/26/2022 8:32 AM OYSTER SORTER Inhaled Oxygen Concentration - - Weight 68 kg (150 lb) 10/16/2022 3:00 PM OYSTER SORTER Height 168.9 cm (5' 6.5) 10/16/2022 3:00 PM OYSTER SORTER Body Mass Index 23.85 10/16/2022 3:00 PM OYSTER SORTER Plan of Treatment Health Maintenance Due Date Last Done Comments Hepatitis C Virus (HCV) Screening 1950 TdaP Immunization 1950 Medicare Initial AWV [id number] 10/04/2016 Respiratory Syncytial Virus (RSV) Immunization (Adult) (1 - 1-dose 75+ series) 01/10/2023 Influenza Immunization (#1) 2025 09/2 02/2022, 07/17/2021, 07/04/2013 SARS-COV-2 Immunization ( season) 2025 09/10/2022, 08/09/2021, 12/10/2020, Additional history exists DTaP/Tdap/Td Immunization Discontinued 09/03/2011 Pneumococcal Immunization (50+ years) Completed 05/26/2016, 03/04/2013 Pneumococcal Immunization Combined Discontinued 05/26/2016, 03/04/2013 Mammogram Discontinued 07/15/2021, 09/03, 07/25/2019, Additional history exists Zoster Immunization Completed 07/30/2022, Hepatitis B Immunization Aged Out No longer eligible based on patient's age to complete this topic Human Papillomavirus (HPV) Immunization Aged Out No longer eligible based on patient's age to complete this topic Meningococcal Immunization (ACWY) Aged Out No longer eligible based on patient's age to complete this topic Rotavirus Immunization Aged Out No lo nger eligible based on patient's age to complete this topic Medical Devices Implanted Type Area Roll Scale Worker Device Identifier Shelf Expiration Date Model / Serial / Lot [email or web address] Simplicity Iol Delivery System Implanted:Qty: 1 on 10/26/2022 by Raman Kraus MD at [facility] Right: Eye 07/29/2025 [id number] / [id number] / [id number] Procedures Procedure Name Priority Date/Time Associated Diagnosis Comments [facility] SCREENING BILATERAL DIGITAL W CAD W [...] exams dated: 07/04/2018, 09/19/2020, 07/25/2019, and 04/19/2019 [facility]. BREAST TISSUE:The tissue of both breasts [...] exam. Electronically signed by: Jeremias rincon/rahel:07/21/2021 15:35:31 Fruit Culler(s): RT Wellington(R)(M), [facility] letter sent: Normal Exam Reading location: [facility] BI-RADS: 2 Benign Procedure Note Jeremias Smith [...] exams dated: 07/04/2018, 09/19/2020, 07/25/2019, and 04/19/2019 [facility]. BREAST TISSUE:The tissue of both breasts [...] next screening exam. Electronically signed by: Jeremias rincon/erasmorad:07/21/2021 15:35:31 Fruit Culler(s): RT Wellington(R)(M), [facility] letter sent: Normal Exam Reading location: [facility] BI-RADS: 2 Benign us Heather Luu MD IMG MAMMO ORDERABLES Final R esult from Last 3 Months or Most Recently Relevant to Health Maintenance Insurance MEDICARE C AETNA Advance Directives Documents on File Type Date Recorded Patient House Worker Expl anation Power of Trimmer Climber for Health Care 10/26/2022 7:08 AM DURABLE POWER OF ARTIFICIAL GLASS EYE MAKER FOR HEALTHCARE
--- OUTSIDE RECORDS SUMMARY | 2025-07-19 09:21 | XMS_ITS | Encounter Summary ---
Author Organization [facility] Address [address] [place] [address] Care Team Providers Care Configuration Management Architect Name Role Phone Lynn Chester NP Primary Care Provider [phone] Paige Luther MD Primary Care Provider [facility] Eva Orlando PA-C Primary Care Provider [phone] Encounter Details Date Type Department Care Team (Late st Contact Info) Description 12/18/2017 Abstract [facility] CONVERSION [address] [place] [address] , Generic MD Goldy Social History Tobacco Use Types Packs/Day Years Used Date Smoking Tobacco: Never Assessed Comments Unknown Sex and Gender Information Value Date Recorded Sex Assigned at Not on file 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
[2025-07-19 19:43] LABS: Hematocrit 42.0 % (37.0-47.0); Hemoglobin 13.5 g/dL (12.0-15.0); Immature Granulocyte Percent A 0.4 % (0-0.5); Lymphocytes Absolute Auto 0.99 K/mm3 (0.9-3.2); Mean Corpuscular HGB Conc 32.1 g/dl (32-36); Mean Corpuscular Hemoglobin 30.9 pg (26-34); Mean Corpuscular Volume 96.1 fl (80-100); Nucleated Red Blood Cells Absolute Auto 0.000 K/mm3 (0.0-0.012); Nucleated Red Blood Cells Perc 0.0 % (0.0-0.2); Platelet Count Result 284 k/mm3 (150-375); Red Blood Count 4.37 M/mm3 (4.2-5.4); White Blood Count 5.2 K/mm3 (4.5-10.0)
[2025-07-19 19:54] LABS: Alanine Aminotransferase 22 U/L (6-35); Albumin Level 4.4 g/dL (3.5-5.1); Alkaline Phosphatase 95 U/L (38-126); Anion Gap 8 mmol/L (4-12); Aspartate Amino Transferase 44 U/L (14-36); Bilirubin,Total 0.7 mg/dL (0.2-1.3); Blood Urea Nitrogen 19 mg/dL (7-17); Calcium 9.0 mg/dL (8.4-10.2); Carbon Dioxide 24 mmol/L (22-30); Chloride 99 mmol/L (98-107); Cholesterol 219 mg/dL (0-200); Estimated Glomerular Filt Rate 58; Glucose 91 mg/dL (65-110); HDL Direct 103 mg/dL; Potassium 4.5 mmol/L (3.4-5.0); Sodium 131 mmol/L (137-145); Total Protein 7.6 g/dL (6.3-8.2); Triglycerides 68 mg/dL (<150)
== END 2025-07-19 08:51 | disposition home or self-care (01) ==
LOC: ANHGOSHLAB 08:51
PROVIDERS: PCP Family Medicine; Visit Provider Nurse Practitioner
DX: E78.5 Hyperlipidemia, unspecified (principal); I10 Essential (primary) hypertension; E55.9 Vitamin D deficiency, unspecified
CPT/HCPCS: 36415; 80053; 80061; 82306; 85025

== ENCOUNTER 2025-08-24 08:16 | Outpatient (CLI) | payer MEDICARE, SELFPAY ==
--- NOTE | ~2025-08-24 | DEXA_ITS ---
Bone Density Report Name: MATTHEW BEARD Age: 75 Sex: Female Ethnicity: White Date of : 1950 Indication: osteopenia; height loss; inflammatory bowel disease; Referring Provider: Lillian Spencer Study: Bone densitometry was performed. Exam Date: August 24, 2025 Accession number: [id number] Bone Density: Region BMD T-score Z-score Classification AP Spine(L1, L3, L4) 0.927 -1.1 1.4 Osteopenia Femoral Neck (Left) 0.629 -2.0 0.2 Osteopenia Total Hip (Left) 0.709 -1.9 0.0 Osteopenia Femoral Neck (Right) 0.640 -1.9 0.3 Osteopenia Total Hip (Right) 0.753 -1.6 0.4 Osteopenia Total Hip Mean 0.731 -1.8 0.2 Osteopenia World Health Organization criteria for BMD impression classify patients as: Normal (T-score at or above -1.0), Osteopenia (T-score between -1.0 and -2.5), or Osteoporosis (T-score at or below -2.5). 10-year Fracture Risk(1): Major Osteoporotic Fracture 14% Hip Fracture 3.9% Reported Risk Factors: [place] (), Neck BMD=0.629, BMI=24.9 (1) FRAX(R) Version 3.08. Fracture probability calculated for an untreated patient. Fracture probability may be lower if the patient has received treatment. Previous Exams: -- Region Exam Age BMD T-score BMD Change BMD Change Date g/cm2 vs Baseline vs Previous -- AP Spine (L1,L3-L4) 08/24/2025 75 0.927 -1.1 0.8% 0.8% 04/27/2022 72 0.920 -1.2 Total Hip(Left) 08/24/2025 75 0.709 -1.9 -10.6%* -10.6%* 04/27/2022 72 0.794 -1.2 Total Hip(Right) 08/24/2025 75 0.753 -1.6 -9.0%* -9.0%* 04/27/2022 72 0.827 -0.9 -- *Denotes significance at 95% confidence level, LSC for AP Spine = 0.022 g/cm2, LSC for Total Hip = 0.027 g/cm2 Clinical Information Provided by Patient: Has used the following medications: Vitamin D Has the following medical conditions: Inflammatory bowel diseases Patient maximum height was 67 Menopause Age: 49 Drinks caffeinated beverages Onset of menses at age 12 Number of children 3 Impression: The patient has low bone mass, based on the Left Femoral Neck T-score. The patient has an estimated ten-year risk of hip fracture of 3.9% and an estimated ten-year risk of major fracture of 14%, based on the WHO FRAX algorithm. The BMD for the Total Hip(Left) decreased, changing by -10.6% since the last DXA exam. The BMD for the Total Hip(Right) decreased, changing by -9.0% since the last DXA exam. Discussion: BONE DENSITY IS LOW AT ONE OR MORE SKELETAL SITES. THE PATIENT'S BMD AND CLINICAL RISK FACTORS CONTRIBUTE TO THIS PATIENT'S INCREASED RISK OF FRACTURE. This patient's lowest T-score is low at one or more skeletal sites. It meets the World Health Organization's (WHO) criteria for ?low bone mass? (T-score between -1.0 and -2.5). The patient's 10-year risk of hip fracture as calculated by FRAX exceeds the threshold where pharmacological therapy is recommended by the National Osteoporosis Foundation (NOF). However, all treatment decisions require clinical judgment and consideration of individual patient factors, including patient preferences, comorbidities, previous drug use, risk factors not captured in the FRAX model (e.g., frailty, falls, vitamin D deficiency, increased bone turnover, interval significant decline in bone density) and possible under or overestimation of fracture risk by FRAX. The patient should follow a healthful lifestyle (good nutrition with adequate calcium and vitamin D, and appropriate weight-bearing exercise). Follow-Up: Consider a repeat BMD and Vertebral Fracture Assessment (VFA) exam in 2 years or sooner if medically necessary, to reassess this patient's status. Reported by: ALESSANDRO on 08/24/2025 8:44:00 AM. Reviewed, dictated and finalized at location A.
== END 2025-08-24 08:17 | disposition home or self-care (01) ==
LOC: MICIMG 08:17
PROVIDERS: PCP Nurse Practitioner; Visit Provider Nurse Practitioner
DX: Z78.0 Asymptomatic menopausal state (principal); M85.88 Other specified disorders of bone density and structure, other site; M85.852 Other specified disorders of bone density and structure, left thigh; M85.851 Other specified disorders of bone density and structure, right thigh
CPT/HCPCS: 77080